=== PATIENT | male | born 1985 | race Caucasian/White ===

== ENCOUNTER 2017-11-30 17:50 | Emergency (ER) | payer SELFPAY ==
[2017-11-30 19:03] LABS: Basophils # (Auto) 0.1 K/mm3 (0.0-0.1); Basophils % (Auto) 0.9 % (0.0-1.8); Eosinophils # (Auto) 0.1 K/mm3 (0.0-0.4); Hematocrit 47.1 % (35.5-45.6); Hemoglobin 16.3 gm/dl (11.8-15.2); Lymphocytes # (Auto) 1.2 K/mm3 (1.2-5.4); Lymphocytes % (Auto) 12.6 % (13.4-35.0); Mean Corpuscular HGB Conc 35 % (32-34); Mean Corpuscular Hemoglobin 31 pg (28-32); Mean Corpuscular Volume 88 fl (84-94); Monocytes # (Auto) 0.3 K/mm3 (0.0-0.8); Monocytes % (Auto) 3.1 % (0.0-7.3); Platelet Count 214 K/mm3 (140-440); Red Blood Count 5.34 M/mm3 (3.65-5.03); Red Cell Distribution Width 12.6 % (13.2-15.2)
[2017-11-30 19:12] LABS: BUN/Creatinine Ratio 6; Blood Urea Nitrogen 7 mg/dL (9-20); Calcium 9.1 mg/dL (8.4-10.2); Hemolysis Index 8
[2017-12-01] MEDS ORDERED: COLACE PO ONE (01:37)
[2017-12-01] MEDS ORDERED: PROCTOFOAM-HC PR ONE (01:37)
[2017-12-01] MEDS ORDERED: NEURONTIN PO ONE ×2 (01:37→12:11)
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
[2017-12-01 02:43] LABS: Bacteria,Urine 1+ /HPF (Negative); Bilirubin,Urine NEG (Negative); Blood,Urine NEG (Negative); Hyaline Casts,Urine 3 /LPF; Mucus,Urine 3+ /HPF; Urobilinogen,Urine < 2.0 mg/dL (<2.0)
[2017-12-01 02:45] LABS: Cannabinoid Screen,Urine PRESUMPTIVE NEGATIVE; Methadone Screen,Urine PRESUMPTIVE NEGATIVE
[2017-12-01 03:03] LABS: Color,Urine Yellow (Yellow)
[2017-12-01 03:33] LABS: Amphetamine Screen,Urine PRESUMPTIVE POSITIVE; Benzodiazepines Screen,Urine PRESUMPTIVE POSITIVE; Cocaine Screen,Urine PRESUMPTIVE POSITIVE; Opiate Screen,Urine PRESUMPTIVE POSITIVE
[2017-12-01] MEDS ORDERED: NORCO 5/325 PO ONE (12:11)
[2017-12-01] MEDS: NEURONTIN PO SCH ×2 (15:02→20:24)
[2017-12-01] MEDS: ANUCORT-HC PR SCH ×2 (16:30→21:55)
[2017-12-01] MEDS: celeXA PO SCH (16:30)
[2017-12-01] MEDS ORDERED: VALIUM PO ONE (16:33)
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
[2017-12-02] MEDS: ANUCORT-HC PR SCH ×2 (10:03→22:05)
[2017-12-02] MEDS: celeXA PO SCH (10:03)
[2017-12-02] MEDS: NEURONTIN PO SCH ×3 (10:03→22:04)
[2017-12-02] MEDS: COLACE PO SCH (10:04)
--- NOTE | 2017-12-02 13:45 | Progress Note ---
Subjective - Reason for Consult Consult date: 12/02/17 Reason for consult: Psychiatry Follow-up - Chief Complaint Chief complaint: "I am not suicidal" 32-year-old male presents to the emergency department for a mental health evaluation. Today the patient is calm and cooperative during the assessment. He stated that he took several pills (benzos and other drugs) so he can get help ( get medications) prior to coming to the ER. He acknowledged telling his family he was in the "[place]," but denies that he tried to hang himself. He is adamant that his issue is about getting his prescriptions filled. The patient is tangent throughout the interview. He denies SI/HI's and AVH's. He denies any side effects of his medication. Mental Status Exam - Vital signs Last Vital Signs Temp 98.5 F 12/02/17 09:30 Pulse 71 12/02/17 09:30 Resp 18 12/02/17 09:30 BP 108/68 12/02/17 09:30 Pulse Ox 99 12/02/17 09:30 - Exam Narrative exam: MSE: Appearance: calm, cooperative Behavior: regular eye contact Speech: regular rate and tone Mood: "okay" Affect: congruent to mood Thought Process: circumstantial Thought Content: denies SI/HI's and AVH's Motor Activity: ambulatory Cognition: A/O x 3 Insight: variable Judgment: variable Assessment and Plan Impression: Unspecified Mood DO. Substance Use DO (amphetamines/cocaine). Positive for opioids and benzos. Today the patient is calm and cooperative during the assessment. No acute withdrawals noted (opioids/benzos). DDx: Bipolar DO, R/O MDD Recommendation/Plan: Continue 1013 and gather collateral information to determine proper dispo. Continue Zyprexa 10 mg PO for mood and Celexa 20 mg PO daily for depression. Discussed possible metabolic side effects of Zyprexa with the patient. Discussed possible suicidality/medication induced radha with the patient reference Celexa. Monitor the patient for acute withdrawals.
[2017-12-03] MEDS: NEURONTIN PO SCH ×2 (09:00→22:37)
[2017-12-03] MEDS: COLACE PO SCH (10:05)
[2017-12-03] MEDS: celeXA PO SCH (10:31)
[2017-12-03] MEDS ORDERED: MOTRIN PO ONE ×2 (12:23→22:29)
[2017-12-03] MEDS: ANUCORT-HC PR SCH ×2 (12:30→22:37)
--- NOTE | 2017-12-03 17:47 | Progress Note ---
Subjective - Reason for Consult Consult date: 12/03/17 Reason for consult: Psychiatry Follow-up - Chief Complaint Chief complaint: "I made a bad decision" 32-year-old male presents to the emergency department for a mental health evaluation. Today the patient is calm and cooperative during the assessment. He stated that he made a mistake by taking pills and endorsing SI's prior to his admission to the ER. He denies SI/HI's and AVH's. He denies any side effects of his medication. Mental Status Exam - Vital signs Last Vital Signs Temp 98.3 F 12/02/17 19:20 Pulse 67 12/02/17 19:20 Resp 12 12/02/17 19:20 BP 116/72 12/02/17 19:20 Pulse Ox 96 12/02/17 19:20 - Exam Narrative exam: MSE: Appearance: calm, cooperative Behavior: regular eye contact Speech: regular rate and tone Mood: "okay" Affect: congruent to mood Thought Process: circumstantial Thought Content: denies SI/HI's and AVH's Motor Activity: ambulatory Cognition: A/O x 3 Insight: variable Judgment: variable Assessment and Plan Impression: Unspecified Mood DO. Substance Use DO (amphetamines/cocaine). Positive for opioids and benzos. Today the patient is calm and cooperative during the assessment. No acute withdrawals noted (opioids/benzos). DDx: Bipolar DO, R/O MDD Recommendation/Plan: Continue 1013 and gather collateral information to determine proper dispo. Continue Zyprexa 10 mg PO for mood and Celexa 20 mg PO daily for depression. Discussed possible metabolic side effects of Zyprexa with the patient. Discussed possible suicidality/medication induced radha with the patient reference Celexa. Monitor the patient for acute withdrawals.
[2017-12-03] MEDS ORDERED: MOTRIN ONE (22:30)
[2017-12-04] MEDS: NEURONTIN PO SCH ×4 (09:00→22:16)
[2017-12-04] MEDS: celeXA PO SCH (10:30)
[2017-12-04] MEDS: ANUCORT-HC PR SCH ×2 (10:30→22:16)
[2017-12-04] MEDS: COLACE PO SCH (10:30)
--- NOTE | 2017-12-04 11:52 | Emergency Department Report ---
Blank Doc - Documentation Documentation: Was asked to review of the patient's laboratory studies at the time of admission. Patient does have multiple positives on his drug screen none of which warranted consult with poison control. Patient has been present our emergency department for the past 3 days showed no signs of decompensation. Patient is cleared from a standpoint of overdose. Laboratory studies were all unremarkable. Patient's hemoglobin 16 is not abnormal finding for man of this size and age. Patient is medically cleared at this time for psychiatric placement.
[2017-12-04] MEDS ORDERED: MOTRIN PO PRN (19:24)
--- NOTE | 2017-12-04 19:26 | Progress Note ---
Subjective - Reason for Consult Consult date: 12/04/17 Reason for consult: follow up - Chief Complaint Chief complaint: "I was under a lot of stress." 32-year-old male presents to the emergency department for a mental health evaluation. Today the patient is calm and cooperative during the assessment. 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 He states he feels 90% better and does not want to harm himself. He reports sleep and appetite are fair. He states he was overwhelmed and did not want to let his family down. He states the medicine is good and denies side effects. MSE: Appearance: calm, cooperative Behavior: regular eye contact Speech: regular rate and tone Mood: "great" Affect: appropriate Thought Process: logical Thought Content: denies SI/HI and AVH Motor Activity: ambulatory Cognition: A/O x 3 Insight: variable Judgment: variable Assessment and Plan Impression: Unspecified Mood DO. Substance Use DO (amphetamines/cocaine). Positive for opioids and benzos. Today the patient is calm and cooperative during the assessment. No acute withdrawals noted (opioids/benzos). r/o radha DDx: Bipolar DO, R/O MDD Recommendation/Plan: Continue 1013 and gather collateral information to determine proper dispo. Continue Zyprexa 10 mg PO for mood and Celexa 20 mg PO daily for depression. Mental Status Exam - Vital signs Last Vital Signs Temp 98 F 12/04/17 10:00 Pulse 69 12/04/17 10:00 Resp 18 12/04/17 10:00 BP 113/70 12/04/17 10:00 Pulse Ox 96 12/04/17 10:00
[2017-12-05] MEDS: NEURONTIN PO SCH (09:00)
[2017-12-05] MEDS: ANUCORT-HC PR SCH (10:00)
[2017-12-05] MEDS: COLACE PO SCH (10:00)
[2017-12-05] MEDS: celeXA PO SCH (10:00)
--- NOTE | 2017-12-05 19:55 | Progress Note ---
Subjective - Reason for Consult Consult date: 12/05/17 Reason for consult: follow up - Chief Complaint Chief complaint: "I feel good now." 32-year-old male presents to the emergency department for a mental health evaluation. Today the patient is calm and cooperative during the assessment. He denies suicidal or homicidal ideation. He denies psychotic symptoms. He states he feels much better and plans to seek outpatient treatment. He asked if we could speak with his . He states the medicine is good and denies side effects. He wants a prescription for the medicine. MSE: Appearance: calm, cooperative Behavior: regular eye contact Speech: regular rate and tone Mood: "great" Affect: appropriate Thought Process: logical Thought Content: denies SI/HI and AVH Motor Activity: ambulatory Cognition: A/O x 3 Insight: fair Judgment: fair Assessment and Plan Impression: Unspecified Mood DO. Substance Use DO (amphetamines/cocaine). Positive for opioids and benzos. Today the patient is calm and cooperative during the assessment. No acute withdrawals noted (opioids/benzos). r/o radha DDx: Bipolar DO, R/O MDD Recommendation/Plan: Rescind 1013. There are no acute safety concerns. He has maintained denial of suicidal ideation and is exhibiting no acute psychotic symptoms. He is recommended to seek outpatient mental health care at [facility]. He was provided with the information to [place] [facility]. He is recommended to continue Zyprexa 10 mg PO for mood and Celexa 20 mg PO daily for depression. Mental Status Exam - Vital signs Last Vital Signs Temp 98.7 F 12/05/17 10:00 Pulse 74 12/05/17 10:00 Resp 20 12/05/17 10:00 BP 111/73 12/05/17 10:00 Pulse Ox 96 12/05/17 10:00
[2017-12-05 21:12] VITALS: BP 112/80
== END 2017-12-05 21:35 ==
LOC: ED 17:50 → EEVIPCON 17:50 → ED 12-05 21:35
DX: F39 Unspecified mood [affective] disorder (principal); F14.10 Cocaine abuse, uncomplicated; F15.10 Other stimulant abuse, uncomplicated; K64.8 Other hemorrhoids; F32.9 Major depressive disorder, single episode, unspecified; M79.605 Pain in left leg
CPT/HCPCS: 36415; 80048; 80307; 81001; 85025; 99284; G0480; 80320

== ENCOUNTER 2018-03-16 22:26 | Emergency (ER) | payer SELFPAY | END 2018-03-16 23:20 | disposition left against medical advice (07) | LOC: ED 22:26 ==

== ENCOUNTER 2019-05-04 00:07 | Emergency (ER) | payer OTHER ==
[2019-05-04 00:21] VITALS: BP 111/72
[2019-05-04 01:09] LABS: Basophils # (Auto) 0.1 K/mm3 (0.0-0.1); Basophils % (Auto) 0.6 % (0.0-1.8); Eosinophils # (Auto) 0.4 K/mm3 (0.0-0.4); Eosinophils % (Auto) 4.7 % (0.0-4.3); Lymphocytes % (Auto) 22.1 % (13.4-35.0); Mean Corpuscular HGB Conc 36 % (32-34); Mean Corpuscular Volume 86 fl (84-94); Monocytes # (Auto) 0.5 K/mm3 (0.0-0.8); Monocytes % (Auto) 5.8 % (0.0-7.3); Platelet Count 227 K/mm3 (140-440); Red Blood Count 5.35 M/mm3 (3.65-5.03); Red Cell Distribution Width 13.8 % (13.2-15.2)
[2019-05-04 01:19] LABS: Hemoglobin 16.6 gm/dl (11.8-15.2)
[2019-05-04 01:29] LABS: BUN/Creatinine Ratio 14; Blood Urea Nitrogen 14 mg/dL (9-20); Calcium 8.8 mg/dL (8.4-10.2); Hemolysis Index 13
[2019-05-04] MEDS ORDERED: MORPHINE 4 MG/1 ML INJ IV ONE (01:47)
[2019-05-04] MEDS ORDERED: SODIUM CHLORIDE 0.9% 1000 ML 1,000 ML IV ONE (01:47)
[2019-05-04] MEDS ORDERED: ONDANSETRON 4 MG/2 ML INJ IV ONE (01:47)
[2019-05-04] MEDS ORDERED: dexAMETHasone 20 MG/5 ML VIAL IV ONE (01:49)
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
[2019-05-04 02:31] LABS: INR 1.06 (0.87-1.13)
[2019-05-04 02:44] LABS: Partial Thromboplastin Time 62.3 Sec. (24.2-36.6)
--- NOTE | 2019-05-04 03:03 | Cat Scan Report ---
CT abdomen pelvis w con INDICATION: Back pain and rectal pain. TECHNIQUE: All CT scans at this location are performed using the following dose modulation technique: Automated exposure control. Helical slices were obtained through the abdomen and pelvis. 100 cc of Omnipaque 30 0 is administered. COMPARISON: None available. FINDINGS: Abdomen: There is mild dependent atelectasis in the lung bases. The liver, spleen, pancreas, adrenal glands, and kidneys show no acute abnormality. The aorta is normal in diameter. The gallbladder is gr ossly unremarkable. There is no obstruction, inflammation, or free air. The appendix is unremarkable. Pelvis: There is no obstruction or inflammation. There are no abnormal fluid collections. There is no adenopathy. On review of bone windows, no acute osseous abnormalities are seen. IMPRESSION: 1. There is no obstruction, inflammation, or free air. There are no abnormal fluid collections. Signer Name: Gurwinder Wharton MD Signed: 05/04/2019 2:59 AM Workstation Name: [id number]
--- NOTE | 2019-05-04 03:20 | XRay Report ---
CHEST 1 VIEW INDICATION / CLINICAL INFORMATION: epigastric pain. COMPARISON: None available. FINDINGS: SUPPORT DEVICES: None. HEART / MEDIASTINUM: No significant abnormality. LUNGS / PLEURA: There are low lung volumes bilaterally with mild dependent atelectasis.. No pneumoth orax. ADDITIONAL FINDINGS: No significant additional findings. IMPRESSION: 1. There is mild dependent atelectasis. Signer Name: Gurwinder Wharton MD Signed: 05/04/2019 3:15 AM Workstation Name: [email or web address]
[2019-05-04 03:44] LABS: INR 1.1 (0.87-1.13)
[2019-05-04 03:45] LABS: Partial Thromboplastin Time 55.1 Sec. (24.2-36.6)
== END 2019-05-04 04:28 | disposition home or self-care (01) ==
LOC: ED 00:07
DX: K64.8 Other hemorrhoids (principal); I10 Essential (primary) hypertension; K21.9 Gastro-esophageal reflux disease without esophagitis; F31.9 Bipolar disorder, unspecified; F20.89 Other schizophrenia; F23 Brief psychotic disorder; F03.90 Unspecified dementia, unspecified severity, without behavioral disturbance, psychotic disturbance, mood disturbance, and anxiety; F32.89 Other specified depressive episodes; Z98.890 Other specified postprocedural states; Z79.899 Other long term (current) drug therapy
CPT/HCPCS: 36415; 71045; 74177; 80048; 85025; 85610; 85730; 96361; 96374; 96375; 99284; J1100; J2270; J2405; J7030; Q9967